=== PATIENT | male | born 1935 | race African-American/Black ===

== ENCOUNTER 2019-08-17 14:36 | Inpatient (IN) ==
--- NOTE | 2019-08-17 15:07 | EKG Report ---
Test Performed on : 08/17/2019 2:53:28 PM Test Reason : bp problems Blood Pressure : / mmHG Vent. Rate : 084 BPM Atrial Rate : 084 BPM P-R Int : 110 ms QRS Dur : 098 ms QT Int : 350 ms P-R-T Axes : 018 003 064 degrees QTc Int : 413 ms Sinus rhythm. with sinus arrhythmia. with short ND Moderate voltage criteria for LVH, may be normal variant Borderline ECG When compared with ECG of 07-AUG-2018 09:50, premature atrial complexes. are no longer present ND interval has decreased Unconfirmed Result
--- NOTE | 2019-08-17 16:57 | Diag Imaging Result Doc PS360 ---
EXAM: CT HEAD W/O CONTRAST 08/17/2019 HISTORY: dizziness, elevated blood pressure TECHNIQUE: This exam was performed using automated exposure control, adjustment of mA or kV according to patient size, and/or use of iterative reconstruction technique. COMMENT: There are no previous studies available for comparison. There is no evidence of mass effect, bleed, or abnormal extra-axial fluid collection. Some patchy lucency is present in the periventricular white matter of both hemispheres particularly near the atria of the lateral ventricles. The visualized paranasal sinuses are clear. The calvarium is intact. IMPRESSION: Minimal microvascular white matter change. No evidence of acute intracranial disease. Electronically signed by Denilson Pierre 08/17/2019 4:54 PM
[2019-08-17 18:13] LABS: BASO# 0.03 X1000 (0.0-0.2); BASO% 0.3 % (0.0-0.8); EOS# 0.05 X1000 (0.0-0.7); EOS% 0.5 % (0.0-10.0); HEMATOCRIT 36.2 % (42.0-52.0); HEMOGLOBIN 11.7 g/dL (14.0-18.0); IMM GRAN# 0.02 X1000 (0.0-0.04); IMM GRAN% 0.2 % (0.0-0.5); LYMPH# 1.75 X1000 (1.2-3.4); LYMPH% 18.3 % (20.5-51.1); MCH 32.4 PG (27-31); MCHC 32.3 g/dL (33-37); MCV 100.3 FL (81-99); MONO# 0.46 X1000 (0.11-0.59); MONO% 4.8 % (1.7-9.3); MPV 12.6 FL (7.4-10.4); NEUT# 7.26 X1000 (1.4-6.5); NEUT% 75.9 % (42.2-75.2); PLT 212 X1000 (130-400); RBC 3.61 XMIL (4.7-6.1); RDW 15.1 % (11.5-14.5); WBC 9.57 X1000 (4.8-10.8)
--- NOTE | 2019-08-17 18:32 | PROVIDER DOCUMENTATION ---
This chart was entered by Hilary Rodriguez Scribe, acting as scribe for Lainey Dia MD. HPI-General Adult - General Source: patient, family - History of Present Illness -Gen Adult Nature of Presenting Problems: Patient is an 83 y/o male presenting to the ED today c/o hypertension and dizziness. Patient reports onset of symptoms today after eating lunch. Patient reports he has hypertension but has not been taking his medications as his prescription has run out. Patient reports mild headache. Patient denies diabetes. Patient denies smoking. Patient denies all other signs/symptoms. Location of Pain/Injury: reports: none Quality of Pain: reports: none Onset/Duration: reports: abrupt, 1-3 hours ago Timing: reports: still present Modifying Factors: improves with: nothing Associated Symptoms: reports: dizziness, headaches Similar Symptoms Previously?: No Recently seen or treated by another doctor?: No <Lainey Dia - Last Filed: 08/17/19 18:43> <Pablito Negro - Last Filed: 08/17/19 21:51> - General Chief Complaint: B/P Problems Stated Complaint: DIZZY/ HIGH BP PER PT Time Seen by Provider: 08/17/19 16:33 Allergies/Adverse Reactions: Patient Allergies Allergy/AdvReac Type Severity Reaction Status Date / Time No Known Allergies Allergy Verified 08/08/18 11:22 Home Medications: Home Medication List Medication Instructions Recorded Confirmed Last Taken Type Losartan [Cozaar] 1 tab PO BID 08/17/19 08/17/19 Unknown History Review of Systems - Adult - REVIEW OF SYSTEMS - ADULT Constitutional: reports: no symptoms reported Eyes: reports: no symptoms reported Ears, Nose, Mouth & Throat: reports: no symptoms reported Cardiovascular: denies: chest pain Respiratory: denies: cough, shortness of breath Gastrointestinal: denies: abdominal pain Genitourinary: reports: no symptoms reported Musculoskeletal: reports: no symptoms reported Integumentary: reports: no symptoms reported Neurological: reports: headache/migraines. denies: loss of balance, numbness, paresthesia Psychiatric: reports: no symptoms reported Endocrine: reports: no symptoms reported Hematologic/Lymphatic: reports: no symptoms reported Allergic/Immunologic: reports: no symptoms reported <Lainey Dia - Last Filed: 08/17/19 18:43> Past History - Adult - PAST MEDICAL HISTORY-ADULT Review of Records: reports: Nursing Assessment Review <Lainey Dai - Last Filed: 08/17/19 18:43> Physical Exam-General - PHYSICAL EXAM-ADULT Initial Vital Signs Reviewed: Yes - CONSTITUTIONAL General Appearance: appears well, alert, no apparent distress - EYES Eyes: PERRL/EOMI - HEAD, EARS, NOSE, MOUTH & THROAT HENMT: normocephalic/atraumatic, moist mucous membranes, normal ENT inspection - NECK Neck: non-tender, full range of motion, supple - RESPIRATORY Respiratory: chest non-tender, no respiratory distress, no accessory muscle use - CARDIOVASCULAR Cardiovascular: normal peripheral pulses, no edema, tachycardia, systolic murmur - GASTROINTESTINAL (ABDOMEN) Abdominal Exam: non tender, soft - MUSCULOSKELETAL Back Exam: normal inspection, no CVA tenderness, no vertebral tenderness Extremity: normal range of motion, normal gait, normal inspection, no pedal edema - SKIN Integumentary: normal color, normal turgor, warm/dry - NEUROLOGIC Neurologic: grossly normal - PSYCHIATRIC Psych/Mental Status: normal mood/affect, normal thought content, normal thought process, oriented x 3 <Mukund Diai Aryamary - Last Filed: 08/17/19 18:43> Progress - PLAN OF CARE/RESULTS Progress/Plan/Lab Results: Vital Signs - 8 hr 08/17/19 14:44 Temperature 97.6 F Pulse Rate 95 H Respiratory Rate 18 Blood Pressure 143/78 O2 Sat by Pulse Oximetry 98 Orders Category Date Time Status EKG [EKG] Stat Ther 08/17/19 14:47 Draft Result Diagrams: 08/17/19 17:56 08/17/19 17:56 - EKG 1 Time of EKG reading by physician:: 14:53 EKG Read and Signed by:: Lainey Dia EKG Interpretation (*Must complete 3 of following elements*): Abnormal Rate: 84 Rhythm: Sinus rhythm with sinus arrhythmia with short AL QRS: LVH AL Interval: shortened - CT/MRI 1 CT Study: Head Impression: See EMR Report (EXAM: CT HEAD W/O CONTRAST 08/17/2019 HISTORY: dizziness, elevated blood pressure TECHNIQUE: This exam was performed using automated exposure control, adjustment of mA or kV according to patient size, and/or use of iterative reconstruction technique. COMMENT: There are no previous studies available for comparison. There is no evidence of mass effect, bleed, or abnormal extra-axial fluid collection. Some patchy lucency is present in the periventricular white matter of both hemispheres particularly near the atria of the lateral ventricles. The visualized paranasal sinuses are clear. The calvarium is intact. IMPRESSION: Minimal microvascular white matter change. No evidence of acute intracranial disease. Electronically signed by Denilson Pierre 08/17/2019 4:54 PM 08/17/191653 Interpreting Physician: Denilson Pierre MD Dictated Date/Time: 08/17/191652 cc: Lainey Dia MD; None,PCP) <Lainey Dia - Last Filed: 08/17/19 18:43> - PLAN OF CARE/RESULTS Progress/Plan/Lab Results: Vital Signs - 8 hr 08/17/19 14:44 08/17/19 18:15 08/17/19 18:30 Temperature 97.6 F Pulse Rate 95 H 76 78 Respiratory Rate 18 20 18 Blood Pressure 143/78 O2 Sat by Pulse Oximetry 98 96 96 08/17/19 18:45 08/17/19 19:00 08/17/19 20:09 Temperature Pulse Rate 78 79 84 Respiratory Rate 18 20 18 Blood Pressure 145/95 O2 Sat by Pulse Oximetry 96 96 95 08/17/19 21:21 Temperature Pulse Rate 86 Respiratory Rate 20 Blood Pressure 145/85 O2 Sat by Pulse Oximetry 97 Laboratory Results - last 24 hr 08/17/19 08/17/19 08/17/19 17:56 17:56 17:56 WBC 9.57 RBC 3.61 L Hgb 11.7 L Hct 36.2 L MCV 100.3 H MCH 32.4 H MCHC 32.3 L RDW Std Deviation 15.1 H Plt Count 212 MPV 12.6 H Immature Gran % (Auto) 0.2 Neut % (Auto) 75.9 H Lymph % (Auto) 18.3 L [place] % (Auto) 4.8 Eos % (Auto) 0.5 Baso % (Auto) 0.3 Immature Gran # (Auto) 0.02 Neut # (Auto) 7.26 H Lymph # (Auto) 1.75 [place] # (Auto) 0.46 Eos # (Auto) 0.05 Baso # (Auto) 0.03 Sodium 135 L Potassium 6.1 H* Chloride 103 Carbon Dioxide 17 L Anion Gap 15 BUN 45 H Creatinine 2.6 H Estimated GFR/1.73 m2 29 BUN/Creatinine Ratio 17 Glucose 105 H Calculated Osmolality 282 Calcium 9.3 Total Bilirubin 0.24 AST 30 ALT 11 Alkaline Phosphatase 98 Troponin T 0.038 Total Protein 7.8 Albumin 4.3 Globulin 3.5 Albumin/Globulin Ratio 1.2 Urine Source Urine Color Urine Turbidity Urine pH Ur Specific [place] Urine Protein Ur Glucose (Stick) Ur Ketones (Stick) Urine Blood Urine Nitrite Urine Bilirubin Urobilinogen Dipstick Urine Leukocytes Urine WBC (Auto) Urine RBC (Auto) U Epithel Cells (Auto) Urine Bacteria (Auto) 08/17/19 08/17/19 19:12 19:27 WBC RBC Hgb Hct MCV MCH MCHC RDW Std Deviation Plt Count MPV Immature Gran % (Auto) Neut % (Auto) Lymph % (Auto) [place] % (Auto) Eos % (Auto) Baso % (Auto) Immature Gran # (Auto) Neut # (Auto) Lymph # (Auto) [place] # (Auto) Eos # (Auto) Baso # (Auto) Sodium 138 Potassium 5.6 H Chloride 106 Carbon Dioxide 16 L Anion Gap 16 BUN 46 H Creatinine 2.5 H Estimated GFR/1.73 m2 30 BUN/Creatinine Ratio 18 Glucose 112 H Calculated Osmolality 288 Calcium 9.4 Total Bilirubin AST ALT Alkaline Phosphatase Troponin T Total Protein Albumin Globulin Albumin/Globulin Ratio Urine Source CLEAN CATCH Urine Color YELLOW Urine Turbidity CLEAR Urine pH 5.5 Ur Specific [place] 1.017 Urine Protein TRACE A Ur Glucose (Stick) NEGATIVE Ur Ketones (Stick) NEGATIVE Urine Blood NEGATIVE Urine Nitrite NEGATIVE Urine Bilirubin NEGATIVE Urobilinogen Dipstick NORMAL Urine Leukocytes NEGATIVE Urine WBC (Auto) <10 Urine RBC (Auto) <10 U Epithel Cells (Auto) <10 Urine Bacteria (Auto) NEGATIVE Orders Category Date Time Status Saline Loc DIRECTED Care 08/17/19 16:41 Active NPO Diet 08/17/19 16:[address] HEAD W/O CONTRAST [CT] Stat Exams 08/17/19 16:38 Completed BMP [BASIC METABOLIC PANEL] [CHEM] Stat Lab 08/17/19 19:27 Completed CBC WITH ELECTRONIC DIFF [HEME] Stat Lab 08/17/19 17:56 Completed COMPREHENSIVE METABOLIC PANEL [CHEM] Stat Lab 08/17/19 17:56 Completed TROPONIN T Stat Lab 08/17/19 17:56 Completed URINALYSIS [URINALYSIS] Stat Lab 08/17/19 19:12 Completed 0.9% Sodium Chloride Inj [Ns] 1,000 ml Med 08/17/19 18:45 Discontinued IV 999 mls/hr Dextrose 50% Syringe [D50w Syringe] Med 08/17/19 18:45 Discontinued 50 ml IV NOW ONE Insulin Human Regular [Humulin R] Med 08/17/19 18:45 Discontinued 10 unit IV NOW ONE Sodium Polystyrene [Kayexalate] Med 08/17/19 18:46 Discontinued 15 gm PO NOW ONE EKG [EKG] Stat Ther 08/17/19 14:47 Draft Pt signed out to me by Dr. Dia, pt denies any prior kidney disease, possible acute on chronic ALLISON, pt hyperkalemic, will admit Result Diagrams: 08/17/19 17:56 08/17/19 19:27 <Pablito Negro - Last Filed: 08/17/19 21:51> Departure - Departure Date of Disposition Decision: 08/17/19 Time of Disposition Decision: 18:31 Certified Medical Emergency: Emergent - Critical Care Note This patient required my direct & personal management of CC.: No <Lainey Dia - Last Filed: 08/17/19 18:43> - Departure Time of Disposition Decision: 21:50 <Pablito Negro - Last Filed: 08/17/19 21:51> - Departure DIAGNOSIS: Hyperkalemia, Acute kidney injury superimposed on CKD Hypertension Qualifiers: Hypertension type: unspecified Qualified Code(s): I10 - Essential (primary) hypertension Disposition: ADMITTED INPATIENT 09 Condition: Good Referrals and Follow-Ups: None,PCP [Primary Care Provider] - Attestation - Physician/ GE Attestation Patient care was provided by Advanced Practice Provider:: No The physician spent face to face time with patient:: Yes Advanced Practice Provider documentation review:: Supervising physician onsite and consulted in the evaluation and care of this patient. The physician did have a face to face encounter with the patient. <Lainey Dia - Last Filed: 08/17/19 18:43> This chart was documented by the luciano scribe, (Hilary Rodriguez Scribe) and accurately reflects the services I performed and decisions made by me, Lainey Dia MD, as attested by the provider's signature.
[2019-08-17 18:42] LABS: ALB/GLOB RATIO 1.2; ALBUMIN 4.3 g/dL (3.5-5.0); CALCIUM 9.3 mg/dL (8.8-10.2); CREATININE 2.6 mg/dL (0.7-1.2); TOTAL BILIRUBIN 0.24 mg/dL (0.20-1.00); TOTAL PROTEIN 7.8 g/dL (6.3-8.3)
[2019-08-17 18:43] LABS: POTASSIUM 6.1 mmol/L (3.5-5.1)
[2019-08-17] MEDS ORDERED: HUMULIN R IV ONE ×2 (18:45→22:56)
[2019-08-17] MEDS ORDERED: NS 1,000 ML IV ONE (18:45)
[2019-08-17] MEDS ORDERED: D50W SYRINGE IV ONE ×2 (18:45→22:56)
[2019-08-17] MEDS ORDERED: KAYEXALATE PO ONE (18:46)
[2019-08-17 19:28] LABS: URINE SOURCE CLEAN CATCH
[2019-08-17 19:31] LABS: BILIRUBIN URINE NEGATIVE (NEGATIVE); BLOOD URINE NEGATIVE (NEGATIVE); COLOR YELLOW; GLUCOSE URINE NEGATIVE (NEGATIVE); KETONE URINE NEGATIVE (NEGATIVE); LEUKOCYTES URINE NEGATIVE (NEGATIVE); NITRITE URINE NEGATIVE (NEGATIVE); PH URINE 5.5; PROTEIN URINE TRACE mg/dL (NEGATIVE); SP GRAVITY URINE 1.017; TURBIDITY URINE CLEAR (CLEAR); UROBILINOGEN URINE NORMAL (NORMAL)
[2019-08-17 19:32] LABS: UR EPITHELIAL CELLS <10 /HPF (<10); URINE BACTERIA NEGATIVE /HPF; URINE RBC <10 /HPF (<10); URINE WBC <10 /HPF (<10)
[2019-08-17 20:13] LABS: CALCIUM 9.4 mg/dL (8.8-10.2); CREATININE 2.5 mg/dL (0.7-1.2); POTASSIUM 5.6 mmol/L (3.5-5.1)
[2019-08-17] MEDS ORDERED: NORVASC PO SCH (22:56)
[2019-08-17] MEDS ORDERED: ZOFRAN IV PRN (22:56)
[2019-08-17] MEDS ORDERED: D5 NS 1,000 ML IV ONE (22:56)
[2019-08-17] MEDS ORDERED: TYLENOL PO PRN (22:56)
[2019-08-17 23:53] LABS: RETIC% 1.6 % (0.8-2.1); RETIC-HE 37.1 PG (28.2-36.6)
[2019-08-18] MEDS: HEPARIN SUBQ SCH ×3 (00:01→20:32)
--- NOTE | 2019-08-18 06:19 | HISTORY AND PHYSICAL ---
PRIMARY CARE PHYSICIAN: Unknown. REASON FOR ADMISSION: Headache and dizziness for the last 2 days. HISTORY OF PRESENT ILLNESS: Mr. Antonio Rivera is an 83-year-old, pleasant man who has a past medical history of hypertension, comes in today complaining of a dull headache and dizziness for the last 36 hours approximately. Says that he ran out of his blood pressure medications 3 days ago, and when he gets these symptoms, he usually thinks his blood pressure is elevated. He denies any palpitations, chest pain, shortness of breath. No nausea, vomiting or diarrhea with this. No focal neurological complaints or blurred vision. He decided to get things checked out in the ER to resolve this. On arrival to the ER his blood pressure was 150/82. He then had some routine labs performed and his potassium was elevated at 6.1. Patient denies any change in his home medications. The patient admits to having a poor urinary stream. Has hesitancy and urgency, which is chronic. No hematuria or genitourinary complaints. No polyuria, polydipsia. No new onset arthralgia or rash. REVIEW OF SYSTEMS: Twelve system review was done. Positive finding was per HPI. ALLERGIES: No known allergies. HOME MEDICATIONS: Losartan 50 mg b.i.d. FAMILY HISTORY: No history of chronic kidney disease or heart disease. No known history of diabetes is noted. SURGICAL HISTORY: Has had inguinal hernia repair, rotator cuff surgery, right shoulder repair, appendectomy. SOCIAL HISTORY: Does not smoke, drink, or use drugs. Lives with his and is . ALLERGIES: No known allergies. LAB WORK: Patient's white count is 9000, hemoglobin and hematocrit 11 and 36, MCV 100, platelets 212, 35% neutrophils. As stated earlier, potassium was 6.1. He was given dextrose, Kayexalate and insulin, and he went down to 5.6. BUN is 42, creatinine 2.5 up from 1.9 a few months ago. Troponin is negative. Urinalysis with trace protein. X-RAYS: Head CT is negative for any acute intracranial process. PHYSICAL EXAMINATION: VITAL SIGNS: Blood pressure is 142/82, heart rate 82, respirations 22, temperature is 98. GENERAL: He is a pleasant, man, elderly, who is alert and oriented to person and time. Normal mood and affect. HEAD: Normocephalic, atraumatic. EYES: Bilateral arcus senilis. Pupils are reactive to light. Extraocular muscles are intact. He is anicteric and not pale. ENT: Exam is grossly normal. No central nerve cyanosis noted on ENT exam. NECK: Supple. No JVD or carotid bruit. No thyromegaly. CHEST: Clear when auscultated in both lung agudelo. CARDIOVASCULAR SYSTEM: First and second heart sounds heard. No gallops, murmurs, rubs. A 2/6 systolic murmur heard. Rhythm is regular. No gallops heard. No rubs. ABDOMEN: Full, soft, nontender. No megaly. Bowel sounds are normal. RECTAL EXAM: Deferred at this time. EXTREMITIES: Patient has good distal pulse volumes. Regular, symmetrical. No edema, clubbing or peripheral cyanosis. NEUROLOGICAL EXAM: No gross focal deficits. SKIN: Intact. No breakdown, lesion, erythema. MUSCULOSKELETAL: Exam is grossly normal. ASSESSMENT: 1. Acute on chronic kidney disease. 2. Hyperkalemia secondary to kidney disease. 3. Macrocystic anemia. 4. Hypertension. 5. Benign prostatic hyperplasia. PLAN: Will further correct hyperkalemia with repeat doses of insulin and dextrose. We will continue with IV fluids, preferably D5 normal saline with a formal component that induces the patient's endogenous insulin to further crash potassium. Repeat labs later in the a.m. Modify treatment accordingly. We will preferably start patient on Norvasc for now. Discontinue losartan, but alternatively the patient may benefit from alpha adan which may also help with patient's presumed prostatism. Want to order a PSA in this patient if so desired. Anemia workup was also ordered. Renal ultrasound was ordered and we will consult Dr. Avila primarily just to get this patient established with him being that he has no active primary care physician. cc: Juancarlos Osman MD
[2019-08-18 06:58] LABS: BASO# 0.02 X1000 (0.0-0.2); BASO% 0.2 % (0.0-0.8); EOS# 0.05 X1000 (0.0-0.7); EOS% 0.6 % (0.0-10.0); HEMATOCRIT 34.1 % (42.0-52.0); HEMOGLOBIN 10.8 g/dL (14.0-18.0); LYMPH# 2.19 X1000 (1.2-3.4); LYMPH% 26.8 % (20.5-51.1); MCH 32.1 PG (27-31); MCHC 31.7 g/dL (33-37); MCV 101.5 FL (81-99); MONO# 0.55 X1000 (0.11-0.59); MONO% 6.7 % (1.7-9.3); MPV 12.7 FL (7.4-10.4); NEUT# 5.35 X1000 (1.4-6.5); NEUT% 65.7 % (42.2-75.2); PLT 193 X1000 (130-400); RBC 3.36 XMIL (4.7-6.1); RDW 15.1 % (11.5-14.5); WBC 8.16 X1000 (4.8-10.8)
[2019-08-18 07:40] LABS: CALCIUM 8.9 mg/dL (8.8-10.2); CREATININE 2.7 mg/dL (0.7-1.2); POTASSIUM 5.2 mmol/L (3.5-5.1)
[2019-08-18 07:48] LABS: TSH 2.03 uIUmL (0.27-4.20)
[2019-08-18 08:05] LABS: PHOSPHORUS 3.9 mg/dL (2.7-4.5)
[2019-08-18] MEDS ORDERED: KAYEXALATE PO ONE (08:32)
[2019-08-18] MEDS: NORVASC PO SCH ×2 (09:06→20:31)
--- NOTE | 2019-08-18 09:48 | HISTORY AND PHYSICAL ---
REASON FOR ADMISSION: Headaches and dizziness for the last 24 hours site. HISTORY OF PRESENT ILLNESS: Mr. Antonio Rivera is a pleasant 83-year-old man with past medical history of chronic kidney disease and hypertension. He reports that he has been out of his blood pressure medication for the last 2 to 3 days and has since developed a dull headache for the last 2 days and dizziness today. He says usually when this happens he thinks his blood pressure is elevated, so he and his came to the hospital to get things checked out. He denies any chest pain, palpitations, or cardiorespiratory issues. No nausea, vomiting or diarrhea. No bleeding from any orifice. He does admit to having poor urinary stream and hesitancy which has been chronic for several years but not gotten any worse. No hematuria. No fever or chills. No focal neurological complaints. No visual complaints or neck stiffness. REVIEW OF SYSTEMS: Twelve system review was done. Positive findings per HPI. ALLERGIES: No known allergies. HOME MEDICATIONS: Patient was taking losartan 50 mg b.i.d. FAMILY HISTORY: Notable for no only diabetes but no heart disease or kidney disease. SOCIAL HISTORY: Does not smoke, drink, use drugs. Lives with his . . SURGICAL HISTORY: Inguinal hernia repairs, total shoulder right shoulder repair, and prior to that had a rotator cuff surgery, open appendectomy. LABORATORY WORK: White count 9000, hemoglobin and hematocrit 11 and 36, MCV 100.3 with platelet count of 212,000, 76% neutrophils. Potassium is 5.6, down from 6.1 earlier. BUN is 46, creatinine 2.5 up from 1.9 a few weeks ago. Glucose 112. Troponin 0.038. Urinalysis, trace protein is noted. Head CT was done and showed no acute intracranial process. Only minimal microvascular white matter changes. His EKG showed sinus rhythm with short [place], moderate voltage criteria for LVH, rate of 84. EXAMINATION: Thin, elderly man not in acute distress.Vital Signs: Blood pressure is 140/78, respiratory rate 20, heart rate is 70, temperature is 97.6, 96on room air. He is alert and oriented to person, time with normal mood and affect. HEENT: Head is normocephalic, atraumatic. Patient has back bilateral arcus senilis, but pupils are reactive to light. Cranial nerves 2-12 are intact. Oropharyngeal exam is grossly normal. No central cyanosis. Neck: Supple. No JVD or carotid bruit. No thyromegaly. Chest: Clear when auscultated in both lung agudelo. Cardiovascular: First and second heart sounds are heard. There is a 2-3/6 ejection systolic murmur in the aortic area radiating to the neck. Rhythm is regular. Abdomen: Full, soft, nontender. No megaly. Bowel sounds are normal. Rectal: Deferred at this time. Extremities: Neurovascularly intact without edema, clubbing or cyanosis. Good distal pulse. Volumes regular symmetrical. Neurological: No gross focal deficits. Skin: Intact with breakdown, lesion, erythema. Skin exam is grossly normal. ASSESSMENT: 1. Acute on chronic kidney failure probably related to medications. 2. Hyperkalemia secondary to ARB use. 3. Microcytic anemia?, myelodysplastic syndrome versus folate deficiency. PLAN: We will continue correction of hyperkalemia. We will repeat another dose of insulin and D50. Patient will receive Kayexalate and the prior dose of D50 and insulin. Continue with the L of fluid of D5 - 1: To avoid hypoglycemia, 2: To exploit the patient's endogenous insulin to further lower potassium. For now, we will discontinue JUAN CARLOS and ARB's. cc: Juancarlos Osman MD
--- NOTE | 2019-08-18 12:35 | Diag Imaging Result Doc PS360 ---
EXAM: US RENAL 2 (RETROPER) COMPLETE 08/18/2019 HISTORY: acute on chr kidney dx TECHNIQUE: Renal ultrasound COMMENT: There is no evidence of hydronephrosis. The urinary bladder is not particularly distended but the prostate is somewhat enlarged measuring 4.6 x 4.5 x 5 cm. The right kidney is 9.5 x 4.6 x 4.6 cm the left is 8 point 4 x 4 by 4.9 cm. Both kidneys are somewhat hyperechoic. IMPRESSION: Medical renal disease. Mild prostatic enlargement. Electronically signed by Denilson Pierre 08/18/2019 12:33 PM
--- NOTE | 2019-08-18 17:50 | PROGRESS NOTE ---
DATE: 08/18/2019 SUBJECTIVE: Patient reports feeling fine. No headaches or dizzy during the last few days. OBJECTIVE: Vitals: Temperature 98.1 degrees, heart rate 76, respiratory 16, blood pressure 150/89, O2 saturation 99% on room air . General: This is a chronically ill-appearing 83-year-old male lying in bed in no acute distress. Cardiovascular: S1 and S2 heard. No murmurs, gallops, or rubs. Regular rate and rhythm. Respiratory: Clear bilaterally to auscultation. No work of breathing or using accessory muscles. Abdomen: Soft, nontender to palpation. Bowel sounds present. No organomegaly. Extremities: No clubbing, cyanosis, or edema. Peripheral pulses present in both legs. Neurological: Patient alert, oriented x3, moves 4 extremities. LABORATORY DATA: Reviewed. ASSESSMENT AND PLAN: 1. Acute on chronic kidney disease. His renal function is 2.7 today, on checking his renal function from last year 1.9 so it is a little bit elevated, at this point will continue to monitor patient closely. 2. Hyperkalemia secondary to kidney disease, potassium is almost back to normal is 5.2 today will provide 1 dose of Kayexalate and will check BMP tomorrow. 3. Hypertension, we have started Norvasc on this patient and basically we have increased the dose of that to 5 mg p.o. b.i.d. At this point blood pressure is 140s and 150s will continue to monitor. 4. Benign prostatic hyperplasia, will continue home medications. 5. Disposition. I think will transfer this patient out of the PVC unit today, will continue with current management plus some changes that we have mentioned and if blood pressure and potassium is normal I think we can discharge this patient. cc: Richard Wilkerson MD
[2019-08-18] MEDS ORDERED: APRESOLINE IV ONE (22:20)
[2019-08-19] MEDS: HEPARIN SUBQ SCH (00:16)
[2019-08-19 07:10] LABS: ALBUMIN 3.4 g/dL (3.5-5.0); CALCIUM 8.7 mg/dL (8.8-10.2); CREATININE 2.2 mg/dL (0.7-1.2); PHOSPHORUS 3.6 mg/dL (2.7-4.5); POTASSIUM 4.8 mmol/L (3.5-5.1)
--- NOTE | 2019-08-19 07:38 | NEPHROLOGY CONSULTATION ---
DATE: 08/18/2019 REASON FOR CONSULTATION: Chronic kidney disease and hypertension. HISTORY OF PRESENT ILLNESS: Mr. Rivera is an 83-year-old, man. He has known hypertension, but ran out of his medications several days prior to admission. He began experiencing a headache, and noticed that his blood pressure was running higher. No other focal findings. No blurred vision. No other lateralizing symptoms. No chest discomfort, nausea, shortness of breath, etc. He came to the emergency room for evaluation, where his initial blood pressure was 140/111. Laboratory data disclosed potassium of 6.1, with creatinine of 2.6. Our chart finds baseline creatinine 1.9 in 08/2018. Having been admitted, his home blood pressure medication was withheld, losartan. He has been treated instead with amlodipine because his potassium was moderately elevated on admission at 6.1. PAST MEDICAL HISTORY: As above. HOME MEDICATIONS: As above. ALLERGIES: None. SOCIAL HISTORY: . Lives in [place]. Has just changed primary care doctors to Dr. Rodriguez. FAMILY HISTORY: Noncontributory. REVIEW OF SYSTEMS: Noncontributory. PHYSICAL EXAMINATION: Vital Signs: Blood pressure 161/79, heart rate 66, respirations 20, afebrile. General: Elderly man, lying in bed. No distress. Skin: Warm and dry. HEENT: Conjunctivae are pink. Neck: Trachea is midline. External jugular veins are distended, but no internal jugular pulsation. Heart: PMI nondisplaced. Regular rate and rhythm with S4. Lungs: Equal. No crackles or wheezes. Abdomen: Soft, nontender. Bowel sounds present. Extremities: No edema, clubbing, or cyanosis. 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 Renal ultrasound discloses atrophic kidneys with left smaller than right. No significant proteinuria. I agree with your care thus far. Nothing further is required from Nephrology perspective, and we will follow him as an outpatient. cc: Omi Avila MD
[2019-08-19 08:18] VITALS: BP 172/82
[2019-08-19] MEDS ORDERED: NORVASC PO SCH (09:00)
[2019-08-19] MEDS ORDERED: APRESOLINE PO SCH (14:00)
--- NOTE | 2019-08-22 13:55 | DISCHARGE SUMMARY ---
ADMISSION DATE: 08/17/2019 DISCHARGE DATE: 08/19/2019 CONSULTS: Dr. Avila IMAGING: CT head with no acute process. Renal ultrasound with medical renal disease but no acute process. Initial creatinine 2.6. Discharge creatinine 2.2. Initial potassium 6.1. Discharge potassium 4.8. DISCHARGE DIAGNOSES: 1. Chronic kidney disease 4. 2. Hyperkalemia. 3. Hypertension. 4. Benign prostatic hypertrophy. HOSPITAL COURSE: The patient presented with headache and dyspnea. He was found to have mildly elevated creatinine over his baseline, hyperkalemia and modestly elevated blood pressure. The patient's hyperkalemia was treated with resolution of his symptoms. Nephrology is involved, but did not to do any acute intervention. Creatinine did improve a little bit over the course of hospitalization. The patient had recently been restarted on losartan for his blood pressure, which may have been part of the reason for his hyperkalemia. This was discontinued. Patient did state that he had hyperkalemia with JUAN CARLOS and ARBs in the past. This patient's symptoms are resolved and his blood pressure was somewhat reasonable. As kidney function was baseline and his hyperkalemia was resolved, he was discharged home. For his blood pressure, he was started on Norvasc and hydralazine. DISCHARGE VITAL SIGNS: Temperature 98.6 degrees, pulse 95, respirations 18, blood pressure 172/82, O2 saturation 100% on room air. DISCHARGE MEDICATIONS: 1. Norvasc 10 mg p.o. daily. 2. Hydralazine 10 mg p.o. t.i.d. DISCHARGE DIET: Renal. FOLLOW-UP AND PLAN: The patient is discharging home on adjusted blood pressure medicines to follow up with PCP and Nephrology. TIME SPENT AT DISCHARGE: Greater than 30 minutes spent arranging discharge and counseling patient.
== END 2019-08-19 14:13 | disposition home or self-care (01) | DRG 641 ==
LOC: ED 14:36 → EDIPHOLD 23:19 → SUATTDRO 23:19 → 2N 08-18 01:34
PROVIDERS: ATTEND Internal Medicine